=== PATIENT | male | born 1940 | race Caucasian/White ===

== ENCOUNTER → 2017-12-23 | Outpatient (CLI) | payer MEDICARE, OTHER ==
--- NOTE | 2017-12-23 14:58 | Diagnostic Imaging Report ---
PROCEDURE:SP LUMBAR, COMPLETE MIN 4VW TECHNIQUE:AP, lateral, bilateral oblique and coned down views lumbar spine. INDICATION:Low back pain COMPARISON:None. FINDINGS: 5 non-rib bearing lumbar vertebral bodies. Vertebral body height is maintained. Multilevel joint space narrowing and facet arthropathy from L1-S1 with apex right scoliosis centered at L2-L3. Regional skeleton intact. Sacroiliac joints are patent. Aortic atherosclerosis. CONCLUSION: 1. Mild to moderate multilevel degenerative disc disease and facet arthropathy. 2. [place] right scoliosis centered at throughout 3 which may be secondary to underlying position, degenerative changes or muscle spasm in the appropriate context. Dictated by: Wolfgang Beth M.D. on 12/23/2017 at 14:58 Electronically approved by: Wolfgang Beth M.D. on 12/23/2017 at 14:58
--- NOTE | 2017-12-23 14:59 | Diagnostic Imaging Report ---
PROCEDURE:HIPS BILAT 3-4VWS (+/- PELVIS) TECHNIQUE:AP and frog leg lateral views of both hips. INDICATION:Hip pain COMPARISON:None. FINDINGS: Both hips are intact. Joint space on the left is maintained with minimal acetabular sclerosis. Right humeral acetabular joint space narrowing prominent at the roof, with subchondral sclerosis and geode. Regional skeleton intact. CONCLUSION: Moderate right hip osteoarthritis. Unremarkable left hip. Dictated by: Wolfgang Beth M.D. on 12/23/2017 at 14:59 Electronically approved by: Wolfgang Beth M.D. on 12/23/2017 at 14:59
== END ==
LOC: RAD 13:57
PROVIDERS: ATTEND Family Medicine
DX: M54.5 Low back pain (principal); M13.0 Polyarthritis, unspecified
CPT/HCPCS: 72110; 73522

== ENCOUNTER → 2018-09-14 | Outpatient (CLI) | payer MEDICARE, OTHER ==
--- NOTE | 2018-09-14 15:04 | Diagnostic Imaging Report ---
Exam: Left ankle 3 views, left foot, 3 views History: Polyarthritis Comparison: None. Findings: No acute, displaced fracture or dislocation. Tibial plafond and talar dome are intact. Ankle mortise is maintained. No acute, displaced fracture or dislocation involving the left foot. Appropriate alignment between the medial cuneiform and second metatarsal base in keeping with an intact Lisfranc ligament. Joint spaces are well-maintained without erosion. Soft tissues are unremarkable. Small dystrophic calcifications in the expected region of the plantar fascia. Impression: No acute osseous abnormalities. Signed by: Dr. Geovani Huertas M.D. on 09/14/2018 3:01 PM
--- NOTE | 2018-09-14 15:13 | Diagnostic Imaging Report ---
EXAMINATION: PA and lateral views of the chest. 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 Mild nonspecific prominence of the interstitium predominantly in the mid and lower lung zones. No pleural effusion or pneumothorax. Mild tortuosity of the thoracic aorta. Otherwise normal cardiomediastinal contour. No acute osseous abnormalities. IMPRESSION: Interstitial prominence in the mid and lower lung zones is nonspecific. Differential considerations include subsegmental atelectasis, age-related fibrotic changes, or asbestosis in the correct clinical setting. CT scan of the chest without contrast may be of benefit for further evaluation if clinically warranted. Signed by: Dr. Geovani Huertas M.D. on 09/14/2018 3:10 PM
--- NOTE | 2018-09-14 15:16 | Diagnostic Imaging Report ---
Exam: Lumbar spine, 4 views History: Low back pain, sciatica Comparison: None. Findings: There are 5 nonrib-bearing lumbar-type vertebral bodies. No acute, displaced fracture or subluxation. Mild multilevel disc space narrowing and endplate sclerosis. Bilateral facet arthropathy at L4-5 and L5-S1. No pars interarticularis defects are identified on the oblique radiographs. Sacroiliac joints are well-maintained. Atherosclerotic vascular calcifications. Moderate degenerative joint disease of the hips right worse than left. Impression: Multilevel degenerative disc disease and degenerative facet arthropathy of the lumbar spine. Degenerative joint disease of the hips. Signed by: Dr. Geovani Huertas M.D. on 09/14/2018 3:13 PM
== END ==
LOC: RAD 13:24
PROVIDERS: ATTEND Family Medicine
DX: M54.40 Lumbago with sciatica, unspecified side (principal); M13.0 Polyarthritis, unspecified; K58.9 Irritable bowel syndrome, unspecified
CPT/HCPCS: 71046; 72110